=== PATIENT | male | born 1960 | race Two or more races ===

== ENCOUNTER 2024-05-03 15:51 | Emergency (ER) | payer SELFPAY ==
[~2024-05-03] VITALS: Ht 175.3 cm; Wt 72.7 kg
[2024-05-03 16:06] VITALS: BP 155/107; PULSE 97; RESP 18; TEMP 98.2; O2SAT 98
[2024-05-03] MEDS: ONDANSETRON 4 MG TABLET PO ONE (16:51)
[2024-05-03] MEDS: IBUPROFEN 600 MG TABLET PO ONE (16:52)
[2024-05-03] MEDS ORDERED: ONDA-104 PO (16:59)
== END 2024-05-03 17:35 | disposition home or self-care (01) ==
LOC: EMS 15:51
DX: S06.0X0A Concussion without loss of consciousness, initial encounter (principal); S16.1XXA Strain of muscle, fascia and tendon at neck level, initial encounter; R51.9 Headache, unspecified; I10 Essential (primary) hypertension; V89.2XXA Person injured in unspecified motor-vehicle accident, traffic, initial encounter; Y93.89 Activity, other specified; Y92.410 Unspecified street and highway as the place of occurrence of the external cause; Y99.8 Other external cause status
CPT/HCPCS: 99283; Q0162

== ENCOUNTER 2024-05-08 09:22 | Emergency (ER) | payer OTHER ==
[~2024-05-08] VITALS: Ht 172.7 cm; Wt 118.2 kg
[~2024-05-08 09:22] MED LIST: ONDA-104 PO
[2024-05-08] MEDS ORDERED: AMLO-257 PO (09:32)
[2024-05-08] MEDS ORDERED: METO50 PO (09:32)
[2024-05-08 09:35] VITALS: BP 154/84; PULSE 73; RESP 18; TEMP 98.4; O2SAT 99
[2024-05-08] MEDS ORDERED: IBUP-1492 PO (10:08)
[2024-05-08] MEDS ORDERED: LIDO700A15 TP (10:08)
[2024-05-08] MEDS: LORazepam 1 MG TABLET PO ONE (10:08)
[2024-05-08] MEDS: LIDOCAINE 5% TRANSDERMAL PATCH TD ONE (10:08)
[2024-05-08] MEDS ORDERED: METH-659 PO (10:08)
[2024-05-08] MEDS: KETOROLAC TROMETHAMINE 60 MG/2 ML VIAL IM ONE (10:08)
== END 2024-05-08 10:23 | disposition home or self-care (01) ==
LOC: EMS 09:22
DX: S16.1XXA Strain of muscle, fascia and tendon at neck level, initial encounter (principal); R51.9 Headache, unspecified; R42 Dizziness and giddiness; I10 Essential (primary) hypertension; Z79.899 Other long term (current) drug therapy; V43.52XA Car driver injured in collision with other type car in traffic accident, initial encounter; Y93.89 Activity, other specified; Y92.410 Unspecified street and highway as the place of occurrence of the external cause; Y99.8 Other external cause status
CPT/HCPCS: 99283; 93005; 96372; J1885

== ENCOUNTER 2024-05-17 19:47 | Emergency (ER) | payer MEDICARE, MEDICAID ==
[~2024-05-17] VITALS: Ht 172.7 cm; Wt 118.2 kg
[~2024-05-17 19:47] MED LIST changes: +AMLO-257 PO; +IBUP-1492 PO; +LIDO700A15 TP; +METH-659 PO; +METO50 PO; -ONDA-104 PO
[2024-05-17] MEDS: DEXAMETHASONE SOD PHOS 4 MG/ML 5 ML VIAL IM ONE (22:48)
[2024-05-17 23:40] LABS: BASOPHILS % (AUTO) 0.6 % (0.0-2.0); EOSINOPHILS % (AUTO) 6.7 % (1.0-6.0); HEMATOCRIT 40.9 % (41-53); HEMOGLOBIN 14.1 g/dL (13.5-17.5); LYMPHOCYTES # (AUTO) 2.3 K/uL (1.0-4.8); LYMPHOCYTES % (AUTO) 34.8 % (22.0-44.0); MEAN CORPUSCULAR HEMOGLOBIN 33.7 pg (26.0-34.0); MEAN CORPUSCULAR HGB CONC 34.6 G/dL (31.0-37.0); MEAN CORPUSCULAR VOLUME 98 fL (80-100); MONOCYTES # (AUTO) 0.5 K/uL (0.1-1.0); MONOCYTES % (AUTO) 8.4 % (2.0-9.0); NEUTROPHILS # (AUTO) 3.2 K/uL (1.8-7.7); NEUTROPHILS % (AUTO) 49.5 % (40.0-70.0); PLATELET COUNT (AUTO) 341 K/uL (150-450); RED BLOOD CELL COUNT(AUTO) 4.19 MIL/uL (4.50-5.90); RED CELL DISTRIBUTION WIDTH 12.9 % (11.5-14.5); WHITE BLOOD COUNT (AUTO) 6.5 K/uL (4.5-11.0)
[2024-05-17 23:41] LABS: ANION GAP 5 mmol/L (8-16); CALCIUM, TOTAL 8.3 mg/dL (8.8-10.5); CARBON DIOXIDE 30 mmol/L (22-29); CHLORIDE 102 mmol/L (98-107); CREATININE 1.09 mg/dL (0.60-1.30); GLOMERULAR FILTR. RATE CALC > 60 mL/min (>60); GLUCOSE,RANDOM 103 mg/dL (70-110); POTASSIUM 4.2 mmol/L (3.5-5.1); SODIUM SERUM 137 mmol/L (136-145); UREA NITROGEN, BLOOD 7 mg/dL (7-18)
[2024-05-18] MEDS ORDERED: IBUP-1492 PO (00:04)
[2024-05-18] MEDS ORDERED: METH4TAB3 PO (00:04)
[2024-05-18 00:30] VITALS: BP 124/68; PULSE 74; RESP 17; TEMP 98.3; O2SAT 99
== END 2024-05-18 01:13 | disposition home or self-care (01) ==
LOC: EMS 19:47
DX: S16.1XXA Strain of muscle, fascia and tendon at neck level, initial encounter (principal); F07.81 Postconcussional syndrome; R53.81 Other malaise; I10 Essential (primary) hypertension; Z79.899 Other long term (current) drug therapy; V89.2XXA Person injured in unspecified motor-vehicle accident, traffic, initial encounter; Y93.89 Activity, other specified; Y92.89 Other specified places as the place of occurrence of the external cause; Y99.8 Other external cause status
CPT/HCPCS: 99283; 80048; 85025; 36415; 96372; J1100

== ENCOUNTER 2024-09-28 18:06 | Emergency (ER) | payer MEDICARE, MEDICAID ==
[~2024-09-28] VITALS: Ht 172.7 cm; Wt 118.2 kg
[~2024-09-28 18:06] MED LIST changes: +METH4TAB3 PO
[2024-09-28 18:10] VITALS: BP 108/69; PULSE 79; RESP 18; TEMP 98.4; O2SAT 98
[2024-09-28] MEDS ORDERED: ACET-3385 PO (18:28)
[2024-09-28] MEDS ORDERED: LIDO700A15 TP (18:28)
[2024-09-28] MEDS ORDERED: IBUP-1492 PO (18:28)
[2024-09-28] MEDS: KETOROLAC TROMETHAMINE 30 MG/ML VIAL IM ONE (18:32)
[2024-09-28] MEDS: LIDOCAINE 5% TRANSDERMAL PATCH TD ONE (18:33)
== END 2024-09-28 18:43 | disposition home or self-care (01) ==
LOC: EMS 18:06
DX: S13.4XXA Sprain of ligaments of cervical spine, initial encounter (principal); I10 Essential (primary) hypertension; Z79.899 Other long term (current) drug therapy; X58.XXXA Exposure to other specified factors, initial encounter; Y93.89 Activity, other specified; Y92.89 Other specified places as the place of occurrence of the external cause; Y99.8 Other external cause status
CPT/HCPCS: 99283; 96372; J1885

== ENCOUNTER 2024-11-15 14:46 | Emergency (ER) | payer MEDICARE, MEDICAID ==
[~2024-11-15] VITALS: Ht 170.2 cm; Wt 113.6 kg
[~2024-11-15 14:46] MED LIST changes: +ACET-3385 PO; +LIDO-57 TP; -LIDO700A15 TP; -METH-659 PO; -METH4TAB3 PO
[2024-11-15 14:56] VITALS: BP 126/80; PULSE 82; RESP 16; TEMP 98.2; O2SAT 100
[2024-11-15] MEDS ORDERED: ACET-66 PO (16:57)
[2024-11-15] MEDS ORDERED: IBUP-1554 PO (16:57)
[2024-11-15] MEDS ORDERED: METH-812 PO (16:57)
== END 2024-11-15 17:11 | disposition home or self-care (01) ==
LOC: EMS 14:46
DX: M54.2 Cervicalgia (principal); I10 Essential (primary) hypertension; Z79.899 Other long term (current) drug therapy
CPT/HCPCS: 99283; Z7502